=== PATIENT | male | born 2000 | race Caucasian/White ===

== ENCOUNTER 2024-03-10 11:50 | Emergency (ER) | payer BC, OTHER, SELFPAY ==
[2024-03-10 11:54] VITALS: BP 143/74; PULSE 77; RESP 18; TEMP 36.2; O2SAT 98
[2024-03-10 12:34] LABS: Strep Group A RT-PCR NOT DETECTED (Negative)
== END 2024-03-10 15:27 | disposition left against medical advice (07) ==
PROVIDERS: Emergency Provider Emergency Medicine
DX: J02.9 Acute pharyngitis, unspecified (principal); Z53.21 Procedure and treatment not carried out due to patient leaving prior to being seen by health care provider
CPT/HCPCS: 87651; 99199